=== PATIENT | female | born 1995 | race Caucasian/White ===

== ENCOUNTER 2019-03-24 15:20 | Emergency (ER) | payer OTHER, SELFPAY ==
[2019-03-24 15:49] VITALS: BP 108/72; PULSE 110; TEMP 36.8; O2SAT 12
== END 2019-03-24 16:54 | disposition left against medical advice (07) ==
PROVIDERS: Emergency Provider Internal Medicine
DX: Z53.21 Procedure and treatment not carried out due to patient leaving prior to being seen by health care provider (principal)
CPT/HCPCS: 99282